=== PATIENT | male | born 1990 | race Two or more races ===

== ENCOUNTER 2016-06-23 23:32 | Emergency (ER) | payer OTHER, SELFPAY ==
[~2016-06-23] VITALS: Ht 165.1 cm; Wt 70.3 kg
[~2016-06-23 23:32] MED LIST: IBUPROFEN600 MG PO; NKM
[2016-06-23 23:45] VITALS: BP 130/87
[2016-06-24 00:36] LABS: APPEARANCE,URINE CLEAR; KETONES,URINE NEGATIVE (NEGATIVE); LEUKOCYTE ESTERASE ,URINE NEGATIVE (NEGATIVE); NITRITE,URINE NEGATIVE (NEGATIVE); PH,URINE 5 (4.5-8.0); PROTEIN,URINE NEGATIVE (NEGATIVE); UROBILINOGEN,URINE NORMAL MG/DL (0.0-1.0)
[2016-06-24] MEDS ORDERED: IBUPROFEN600 MG ORAL (01:22)
--- NOTE | 2016-06-24 01:23 | Emergency Room Report ---
History of Present Illness General Chief Complaint: Male Urogenital Problems Source: Patient Present Illness [facility] This is a 26-year-old male with no past medical history. He presents with chief complaint of right testicular pain. Has been ongoing for 8 days. It is on and off. Said that he get a sharp pain. No nausea no vomiting. No hematuria. No discharge. He essentially active with his . Denies any swelling. Denies any trauma. Allergies: Coded Allergies: PENICILLINS (Verified Allergy, Mild, 04/05/12) Patient History Past Medical History: none Past Surgical History: none Pertinent Family History: none Social History: Denies: smoking Immunizations: other Reviewed Nursing Documentation: PMH: Agreed, PSxH: Agreed Nursing Documentation-PMH Past Medical History: No Stated History Review of Systems Eye: Denies: blurred vision, eye pain ENT: Denies: ear pain, nose congestion, throat swelling Respiratory: Denies: cough, shortness of breath Cardiovascular: Denies: chest pain, palpitations Gastrointestinal: Denies: abdominal pain, diarrhea, nausea, vomiting Musculoskeletal: Denies: back pain, joint pain Skin: Denies: rash Neurological: Denies: headache, numbness Endocrine: Denies: increased thirst, increased urine Hematologic/Lymphatic: Denies: easy bruising All Other Systems: negative except mentioned in HPI Physical Exam Vital Signs Date Time Temp Pulse Resp B/P Pulse Ox O2 Delivery O2 Flow Rate FiO2 06/23/16 23:37 97.3 87 16 133/88 97 Room Air vitals normal Sp02 EP Interpretation: reviewed, normal General Appearance: well appearing, no apparent distress, alert Head: normocephalic, atraumatic Eyes: bilateral eye EOMI, bilateral eye PERRL ENT: hearing grossly normal, normal pharynx Neck: full range of motion, supple, no meningismus Respiratory: chest non-tender, lungs clear, normal breath sounds Cardiovascular #1: regular rate, rhythm, no murmur Gastrointestinal: normal bowel sounds, non tender, no mass, no organomegaly, no bruit, non-distended Genitourinary: normal inspection, no CVA tenderness, no vertebral tenderness, penis normal, scrotum normal, other - No mass palpated. Epididymis normal. No hernia. Musculoskeletal: back normal, gait/station normal, normal range of motion Psychiatric: mood/affect normal Skin: warm/dry Medical Decision Making Diagnostic Impression: Primary Impression: Testicle tenderness ER Course Patient presents with testicular tenderness. This may be a hydrocele versus varicocele. No evidence of torsion. No evidence of infection. I did not palpate any mass. I see no need for emergent ultrasound. Last Vital Signs Date Time Temp Pulse Resp B/P Pulse Ox O2 Delivery O2 Flow Rate FiO2 06/23/16 23:45 98.0 81 16 130/87 100 Room Air Status: improved Disposition: HOME, SELF-CARE Condition: Stable Scripts Ibuprofen* (MOTRIN*) 600 Mg Tablet 600 MG ORAL THREE TIMES A DAY, #20 TAB 0 Refills Prov: JEANE COREAS M.D. 06/24/16 Referrals: NOT CHOSEN [facility]/,REFERRING (PCP) Additional Instructions: Followup with your Dr. in 7 days. If not better you may be an ultrasound. Return if worse. JEANE COREAS M.D. Jun 24, 2016 01:23
[2016-06-24 01:37] VITALS: BP 127/83
== END 2016-06-24 01:37 | disposition home or self-care (01) ==
LOC: EMR 23:55
DX: N50.811 Right testicular pain (principal); Z88.0 Allergy status to penicillin
CPT/HCPCS: 81003; 99283